=== PATIENT | female | born 1960 | race African-American/Black ===

== ENCOUNTER 2021-12-20 22:34 | Observation (INO) | payer BC ==
[2021-12-20 23:09] VITALS: BMI 23.3
[2021-12-21 01:46] LABS: BASO % 0.5 % (0-2.0); EOS % 0.7 % (0-4.5); HEMATOCRIT 37.3 % (32.4-45.2); HEMOGLOBIN 12.9 GM/dL (10.7-15.3); LYMPH % 32.8 % (8-40); MCH 32.5 pg (25.7-33.7); MCHC 34.5 g/dl (32.0-36.0); MEAN CELL VOLUME 94.2 fl (80-96); MEAN PLT VOLUME 9.2 fl (7.5-11.1); MONO % 7.6 % (3.8-10.2); NEUT % 58.4 % (42.8-82.8); PLATELET COUNT 191 10^3/uL (134-434); RBC 3.96 M/mm3 (3.60-5.2); RDW 13.4 % (11.6-15.6); WHITE BLOOD COUNT 4.4 K/mm3 (4.0-10.0)
[2021-12-21 01:53] LABS: INR 1.02 (0.83-1.09); PROTHROMBIN TIME (PATIENT) 11.7 SEC (9.7-13.0)
[2021-12-21 01:56] LABS: ACTIVATED PTT 30.4 SECONDS (25.2-36.5)
[2021-12-21 02:01] LABS: ALBUMIN 3.7 g/dl (3.4-5.0); BLOOD UREA NITROGEN 18.2 mg/dL (7-18); CALCIUM 9.6 mg/dL (8.5-10.1)
[2021-12-21 02:04] LABS: CREATININE 0.7 mg/dL (0.55-1.3)
[2021-12-21 02:06] LABS: BILIRUBIN,TOTAL 0.4 mg/dL (0.2-1); TOT PROT 6.6 g/dl (6.4-8.2)
[2021-12-21] MEDS ORDERED: ASPIRIN 81 MG CHEWABLE TABLETS PO ONE (02:09)
[2021-12-21] MEDS ORDERED: ASPIRIN 81 MG CHEWABLE TABLETS ONE ×2 (02:15→12:24)
[2021-12-21] MEDS ORDERED: LISINOPRIL 10 MG TABLET PO ONE (02:56)
[2021-12-21] MEDS ORDERED: LISINOPRIL 10 MG TABLET ONE (03:01)
[2021-12-21] MEDS ORDERED: ASPIRIN 81 MG CHEWABLE TABLETS PO SCH (10:00)
[2021-12-21 15:33] VITALS: PULSE 86; TEMP 98.9
[2021-12-23 09:08] VITALS: BP 182/94
== END 2021-12-21 15:30 | disposition home or self-care (01) ==
LOC: JER 22:34 → JERBED 12-21 05:10
PROVIDERS: ADMIT Hospitalist
DX: R07.9 Chest pain, unspecified (principal); I10 Essential (primary) hypertension; E78.5 Hyperlipidemia, unspecified; E11.9 Type 2 diabetes mellitus without complications; Z29.9 Encounter for prophylactic measures, unspecified
CPT/HCPCS: 36415; 71046-TC-FY; 78452-TC; 80053; 80061; 83735; 84484; 85025; 85610; 85730; 93005; 93010; 93017; 93306-TC; 99285-25; A9502; C9803-CS; G0378; U0003; U0005